=== PATIENT | female | born 1980 | race Hispanic/Latino ===

== ENCOUNTER → 2023-04-09 09:40 | Outpatient (CLI) | payer OTHER, SELFPAY ==
--- NOTE | 2023-04-09 | DI.RAD.S_ITS ---
PROCEDURE: FL BARIUM SWALLOW W SPEECH INDICATIONS: DYSPHAGIA COMPARISON: None. TECHNIQUE: Examination was conducted in conjunction with speech pathology per standard protocol. In the lateral projection, filming was performed of the patient swallowing. AP projection filming may also be performed with patient swallowing. COMPARISON: FINDINGS: Function: The oral preparatory phase appears normal, with proper containment. The subsequent oral propulsive phase, pharyngeal phase, and esophageal phase of swallowing also appear normal with all proffered substances. No laryngotracheal penetration or aspiration. No pathologic vallecular pooling. Morphology: No cricopharyngeal bar is identified. No cervical esophageal webs. No Zenker's diverticulum. No strictures. IMPRESSION: Normal modified barium swallow exam. No laryngeal penetration or aspiration. Please see separate speech pathologists report. Dictated by: Clyde Garzon M.D. on 04/09/2023 at 13:47 Approved by: Clyde Garzon M.D. on 04/09/2023 at 13:48
--- NOTE | 2023-04-09 14:38 | ST.SWALLOW ---
Visit Care Team Role Provider Type Landon Minor MD Attending Provider Physician Referring Provider Specialty: Ear, Nose, Throat Address: [address] [place] [address], [id number] Email: [email or web address] Modified Barium Swallow Study [employer] Modified Barium Swallow Study Start: 04/09/23 13:55 Freq: Status: Active Protocol: Document 04/09/23 13:57 LNK (Rec: 04/09/23 14:37 [id number]) Modified Barium Swallow Study Total Time Visit Start Time 10:00 Visit Stop Time 13:30 Total Visit Minutes 30 Referral Referring Physician WES Martinez Reason for Referral dysphagia Setting Setting Outpatient Care Patient Information Identification Type Name,Date of Patient History Pt was seen for a MBSS at the referral of WES Muniz. According to the pt and referral, the pt has been c/o difficulty swallowing solids. Pt reports that solids get stuck in her mid neck area and that she has needed to extract chewed foods from her pharynx. Pt reports a PMH that includes dysphagia and Xerostomia. She described her mouth as constantly dry with minimal saliva production. This significantly impacts her swallowing of foods. She can successfully swallow when she drinks liquids after bites of solids. Pt denies choking with liquids and/or solids. Subjective Observations Pt was seated in the fluroscopy chair. Directions and procedures were described for pt. She indicated she understood and agreed to proceed. Patient Positioning Position View Lat-A/P Imaging Lateral View Textures Administered Trials Presented Thin Liquid via Spoon (IDDSI 0 ),Thin Liquid via Cup (IDDSI 0 ),Extremely Thick Liquid via Spoon (IDDSI 4),Regular (IDDSI 7) Barium Tablet Yes The IDDSI Framework Protocol: IDDSI.1 Oral Impairment Source: The Modified Barium Swallow Impairment Profile (MBSImP??) Lip Closure No labial escape Tongue Control During Bolus Hold Cohesive bolus between tongue to palatal seal Bolus Preparation/Mastication Timely & efficient chewing & mashing Bolus Transport/Lingual Motion Brisk tongue motion Oral Residue Complete oral clearance Initiation of Pharyngeal Swallow Bolus head in valleculae Additional Oral Impairment Observations OME and DKS were noted to be WNL. Dentition was natural in good hygiene. Mastication was WNL with a rotary chew pattern. No oral residual observed. Glycerine swabs were suggested to the pt to help with oral cavity moisture . Pharyngeal Impairment Source: The Modified Barium Swallow Impairment Profile (MBSImP??) Soft Palate Elevation No bolus between soft palate & pharyngeal wall Laryngeal Elevation Part.sup.move.thyroid cart/ part.approx.arytenoids to epiglot.petiole Anterior Hyoid Excursion Complete anterior movement Epiglottic Movement Complete inversion Laryngeal Vestibular Closure Complete; no air/contrast in laryngeal vestibule Pharyngeal Stripping Wave Present - complete Pharyngoesophageal Segment Opening Complete distention & complete duration; no obstruction of flow Tongue Base Retraction Trace column of contrast/air betwn tongue base & post. pharyngeal wall Pharyngeal Residue Trace residue within/on pharyngeal structures Location Pyriform sinuses Additional Pharyngeal Impairment Pharyngeal phase of swallow Observations was observed to be WNL. laryngeal elevation was slightly reduced but hyoid movement an epiglottic inversion were WNL. Trace residual was observed in the pyriforms and valeculla; but residual was cleared with subsequent swallows of water. No penetration or aspiration were noted. A/P View The IDDSI Framework Protocol: IDDSI.1 A/P View Observations Pharyngeal Contraction Complete Esophageal Clearance Upright Position Complete clearance; esophageal coating Esophageal Function WFL Additional A-P Observations Barium tablet was swallowed and cleared jake esophagus in a timely manner. Esophageal phase WNL. Clinical Impressions Dysphagia Type WNL Patient Appropriate for Therapy No Recommendations Diet Comments No changes in diet recommended at this time. Alternate liquids/solids
== END ==
PROVIDERS: Referring Provider Otolaryngology; Visit Provider Otolaryngology
DX: R13.10 Dysphagia, unspecified (principal); K11.7 Disturbances of salivary secretion
CPT/HCPCS: 74230; 92611